=== PATIENT | male | born 1955 ===

== ENCOUNTER 2018-02-07 14:33 | Observation (INO) | payer OTHER ==
[2018-02-07 15:40] LABS: BASO % 0.4 % (0.0-2.0); EOS % 0.1 % (0.0-4.0); HEMOGLOBIN 14.2 g/dL (12.0-18.0); LYMPH # 0.3 K/uL (1.0-4.3); LYMPH % 5.1 % (20.0-40.0); MEAN CELL VOLUME 94.3 fL (80.0-94.0); MEAN CORPUSCULAR HEMOGLOBIN 32.8 pg (27.0-31.0); MEAN CORPUSCULAR HGB CONC 34.8 g/dL (33.0-37.0); MEAN PLATELET VOLUME 7.3 fL (7.2-11.7); MONO # 0.7 K/uL (0.0-0.8); MONO % 10.8 % (0.0-10.0); NEUT # 5.5 K/uL (1.8-7.0); NEUT % 83.6 % (50.0-75.0); PLATELET COUNT 303 K/uL (130-400); RBC 4.33 Mil/uL (4.40-5.90); RED CELL DISTRIBUTION WIDTH 12.6 % (11.5-14.5); WHITE BLOOD COUNT 6.6 K/uL (4.8-10.8)
--- NOTE | 2018-02-07 15:40 | RAD ---
Date of service: 02/07/2018 PROCEDURE: CHEST RADIOGRAPH, 1 VIEW HISTORY: Detox/Psy COMPARISON: None available. FINDINGS: LUNGS: Clear. PLEURA: No pneumothorax or pleural fluid seen. CARDIOVASCULAR: No aortic atherosclerotic calcification present. Normal. OSSEOUS STRUCTURES: No significant abnormalities. VISUALIZED UPPER ABDOMEN: Normal. OTHER FINDINGS: None. IMPRESSION: No active disease.
--- NOTE | 2018-02-07 15:40 | C.PDOC ---
History Of Present Illness 62 y/o male presents to the ED with complaints of palpitations. Additionally patient reports feeling depressed and nervous ever since passed a few months ago. Denies any suicidal or homicidal ideation. Patient was seen 2 months ago for palpitations and discharged home. Patient states he has yet to follow up. Otherwise he denies chest pain, SOB, dizziness, visual loss, abdominal pain, fever, chills, or night sweats. Time Seen by Provider: 02/07/18 15:02 Chief Complaint (Nursing): Psychiatric Evaluation History Per: Patient History/Exam Limitations: no limitations Onset/Duration Of Symptoms: Intermittent Episodes Current Symptoms Are (Timing): Still Present Associated Symptoms: Anxiety. denies: Suicidal Thoughts, Suicidal Plan Past Medical History Reviewed: Historical Data, Nursing Documentation, Vital Signs Vital Signs: Last Vital Signs Temp 98.5 F 02/07/18 14:43 Pulse 89 02/07/18 14:43 Resp 16 02/07/18 14:43 BP 219/117 H 02/07/18 14:43 Pulse Ox 98 02/07/18 14:43 Surgical History: Appendectomy Family History: States: Unknown Family Hx - Social History Hx Tobacco Use: No Hx Alcohol Use: No Hx Substance Use: No - Immunization History Hx Tetanus Toxoid Vaccination: No Hx Influenza Vaccination: No Hx Pneumococcal Vaccination: No Review Of Systems Except As Marked, All Systems Reviewed And Found Negative. Constitutional: Negative for: Fever, Chills, Sweats Eyes: Negative for: Vision Change Cardiovascular: Positive for: Palpitations. Negative for: Chest Pain Respiratory: Negative for: Shortness of Breath Gastrointestinal: Negative for: Nausea, Vomiting Neurological: Negative for: Weakness, Numbness, Dizziness Psych: Positive for: Anxiety, Depression. Negative for: Suicidal ideation (or homicidal ideation) Physical Exam - Physical Exam Appears: Non-toxic, No Acute Distress, Other (Hypertensive, BP 219/117 on arrival) Skin: Normal Color, Warm, No Diaphoretic Head: Atraumatic, Normacephalic Eye(s): bilateral: Normal Inspection, PERRL, EOMI Oral Mucosa: Moist Neck: Normal ROM Chest: Symmetrical Cardiovascular: Rhythm Regular, No Murmur Respiratory: Normal Breath Sounds, No Rales, No Rhonchi, No Wheezing Gastrointestinal/Abdominal: Soft, No Tenderness, No Distention Extremity: Bilateral: Atraumatic, Normal Color And Temperature, Normal ROM Pulses: Left Radial: Normal, Right Radial: Normal Neurological/Psych: Oriented x3, Normal Speech ED Course And Treatment - Laboratory Results Result Diagrams: 02/07/18 15:28 18 15:28 ECG: Interpreted By Me, Viewed By Me ECG Rhythm: Sinus Rhythm Interpretation Of ECG: normal intervals, normal axis, no ST or T wave abnormalities Rate From EC (bpm) O2 Sat by Pulse Oximetry: 98 (RA) Pulse Ox Interpretation: Normal Medical Decision Making Medical Decision Making: Impression: Palpitations, Psych eval Plan: --EKG --Labs --Chest x-ray Patient given Labetalol IV. 16:[address] Bourne, patient accepted for observation for palpitations, hypertension, and depression. Disposition Discussed With : Tony Bourne Doctor Will See Patient In The: Hospital Counseled Patient/Family Regarding: Studies Performed, Diagnosis - Disposition Disposition: HOSPITALIZED Disposition Time: 16:23 Condition: FAIR - Clinical Impression Clinical Impression: Palpitations, Depression, Hypertension - Scribe Statement The provider has reviewed the documentation as recorded by the Prosper Britt Provider Attestation: All medical record entries made by the Laureibcorrie were at my direction and pers onally dictated by me. I have reviewed the chart and agree that the record accurately reflects my personal performance of the history, physical exam, medical decision making, and the department course for this patient. I have also personally directed, reviewed, and agree with the discharge instructions and disposition.
[2018-02-07 15:50] LABS: URINE BILIRUBIN NEGATIVE (NEGATIVE); URINE BLOOD 1+ (NEGATIVE); URINE CLARITY Clear (Clear); URINE COLOR Yellow (YELLOW); URINE GLUCOSE (UA) NORMAL (Normal); URINE LEUKOCYTE ESTERASE NEG Leu/uL (Negative); URINE PROTEIN 2+ mg/dL (NEGATIVE); URINE UROBILINOGEN NORMAL mg/dL (0.2-1.0)
[2018-02-07] MEDS ORDERED: Labetalol 5 mg/ml Inj 20ML IV STA (15:53)
[2018-02-07 15:54] LABS: ALB/GLOB RATIO 1.2 (1.0-2.1); ALBUMIN 4.2 g/dL (3.5-5.0); ALT/SGPT 22 U/L (21-72); AST/SGOT 18 U/L (17-59); BLOOD UREA NITROGEN 15 mg/dL (9-20); CALCIUM 8.9 mg/dl (8.6-10.4); GFR NON-AFRICAN AMERICAN > 60
[2018-02-07 16:08] LABS: BANDS 1 % (0-2); LYMPHOCYTE 2 % (20-40); MONOCYTE 7 % (0-10); NEUTROPHIL 90 % (50-75); TOTAL CELLS COUNTED 100
[2018-02-07 16:09] LABS: PLATELET ESTIMATE NORMAL (NORMAL)
[2018-02-07 16:24] LABS: BARBITURATES, UR NEGATIVE (NEGATIVE); BENZODIAZEPINES, UR NEGATIVE (NEGATIVE); OPIATES, UR NEGATIVE (NEGATIVE); PHENCYCLIDINE, UR NEGATIVE (NEGATIVE)
--- NOTE | 2018-02-07 17:03 | CP.PCM.HP ---
<Sen Greenberg - Last Filed: 02/07/18 21:04> History of Present Illness - History of Present Illness History of Present Illness: PGY2 Medicine Note for Dr. Bourne Patient is a 62 year old male with no past medical history presenting to the hospital with a complaint of palpitations. He was seen for palpitations 2 months ago in the emergency room and was discharged home. He has been depressed since his of 38 years 3 months ago. Patient was given instructions to follow up with cardiology but reports that he never followed up. Patient reports that he had an episode of blurry vision/vision loss 3 days ago, which completely resolved within a number of hours. Denies fevers, chills, nausea, vomiting, diarrhea, constipation, chest pain, shortness of breath, lightheadedness, dizziness, numbness or tingling. Denies suicidal or homicidal ideation. PMD: none PMH: denies PSH: appendectomy Family: Mother - at 94 of unknown cancer, Father - in mid 70s of unknown causes Social: Denies tobacco, alcohol or illicit drug use Allergies: NKDA Home Medications: none Present on Admission - Present on Admission Any Indicators Present on Admission: No Review of Systems - Review of Systems All systems: reviewed and no additional remarkable complaints except - Constitutional Constitutional: As Per HPI - EENT Eyes: As Per HPI Ears: As Per HPI Nose/Mouth/Throat: As Per HPI - Cardiovascular Cardiovascular: As Per HPI - Respiratory Respiratory: As Per HPI - Gastrointestinal Gastrointestinal: As Per HPI - Musculoskeletal Musculoskeletal: As Per HPI - Integumentary Integumentary: As Per HPI - Neurological Neurological: As Per HPI - Psychiatric Psychiatric: As Per HPI - Endocrine Endocrine: As Per HPI - Hematologic/Lymphatic Hematologic: As Per HPI Past Patient History - Infectious Disease Hx of Infectious Diseases: None - Past Social History Smoking Status: Never Smoked - PSYCHIATRIC Hx Substance Use: No - SURGICAL HISTORY Hx Appendectomy: Yes - ANESTHESIA Hx Anesthesia: Yes Hx Anesthesia Reactions: No Hx Malignant Hyperthermia: No Meds Home Medications: Home Medication List Medication Instructions Recorded Confirmed Type Lorazepam [Ativan] 0.5 mg PO DAILY PRN #15 tab 02/08/18 Rx RX: Lisinopril [Zestril] 10 mg PO DAILY #30 tab 02/08/18 Rx Allergies/Adverse Reactions: Allergies Allergy/AdvReac Type Severity Reaction Status Date / Time No Known Allergies Allergy Verified 02/07/18 14:46 Physical Exam - Constitutional Appears: Non-toxic, No Acute Distress - Head Exam Head Exam: ATRAUMATIC, NORMOCEPHALIC - Eye Exam Eye Exam: EOMI, Normal appearance, PERRL - ENT Exam ENT Exam: Mucous Membranes Moist - Neck Exam Neck exam: Positive for: Normal Inspection. Negative for: Lymphadenopathy - Respiratory Exam Respiratory Exam: Clear to Auscultation Bilateral, NORMAL BREATHING PATTERN. absent: Accessory Muscle Use, Rales, Rhonchi, Wheezes, Respiratory Distress - Cardiovascular Exam Cardiovascular Exam: REGULAR RHYTHM, +S1, +S2 - GI/Abdominal Exam GI & Abdominal Exam: Normal Bowel Sounds, Soft. absent: Distended, Firm, Guarding, Rebound, Rigid, Tenderness - Extremities Exam Extremities exam: Positive for: normal inspection, pedal pulses present. Negative for: calf tenderness, pedal edema - Neurological Exam Neurological exam: Alert, Oriented x3 - Psychiatric Exam Psychiatric exam: Normal Affect, Normal Mood - Skin Skin Exam: Dry, Warm Results - Vital Signs Recent Vital Signs: Last Vital Signs Temp 98.2 F 02/07/18 16:08 Pulse 77 02/07/18 16:08 Resp 18 02/07/18 16:08 BP 151/87 H 02/07/18 16:08 Pulse Ox 98 02/07/18 16:52 - Labs Result Diagrams: 02/07/18 15:28 02/07/18 15:28 Labs: Laboratory Results - last 24 hr 02/07/18 02/07/18 02/07/18 15:28 15:28 15:42 WBC 6.6 RBC 4.33 L Hgb 14.2 Hct 40.8 MCV 94.3 H MCH 32.8 H MCHC 34.8 RDW 12.6 Plt Count 303 MPV 7.3 Neut % (Auto) 83.6 H Lymph % (Auto) 5.1 L [place] % (Auto) 10.8 H Eos % (Auto) 0.1 Baso % (Auto) 0.4 Neut # (Auto) 5.5 Lymph # (Auto) 0.3 L [place] # (Auto) 0.7 Eos # (Auto) 0.0 Baso # (Auto) 0.0 Neutrophils % (Manual) 90 H Band Neutrophils % 1 Lymphocytes % (Manual) 2 L Monocytes % (Manual) 7 Platelet Estimate Normal RBC Morphology Normal Sodium 133 Potassium 4.3 Chloride 99 Carbon Dioxide 24 Anion Gap 14 BUN 15 Creatinine 1.0 Est GFR ( Amer) > 60 Est GFR (Non-Af Amer) > 60 Random Glucose 105 Calcium 8.9 Phosphorus 3.3 Magnesium 1.8 Total Bilirubin 0.5 AST 18 ALT 22 Alkaline Phosphatase 88 Troponin I < 0.0120 Total Protein 7.7 Albumin 4.2 Globulin 3.5 Albumin/Globulin Ratio 1.2 Urine Color Yellow Urine Clarity Clear Urine pH 6.0 Ur Specific [place] 1.005 Urine Protein 2+ H Urine Glucose (UA) Normal Urine Ketones Negative Urine Blood 1+ H Urine Nitrate Negative Urine Bilirubin Negative Urine Urobilinogen Normal Ur Leukocyte Esterase Neg Urine WBC (Auto) 1 Urine RBC (Auto) 1 Urine Opiates Screen Urine Methadone Screen Ur Barbiturates Screen Ur Phencyclidine Scrn Ur Amphetamines Screen U Benzodiazepines Scrn U Oth Cocaine Metabols U Cannabinoids Screen Alcohol, Quantitative < 10 02/07/18 15:42 WBC RBC Hgb Hct MCV MCH MCHC RDW Plt Count MPV Neut % (Auto) Lymph % (Auto) [place] % (Auto) Eos % (Auto) Baso % (Auto) Neut # (Auto) Lymph # (Auto) [place] # (Auto) Eos # (Auto) Baso # (Auto) Neutrophils % (Manual) Band Neutrophils % Lymphocytes % (Manual) Monocytes % (Manual) Platelet Estimate RBC Morphology Sodium Potassium Chloride Carbon Dioxide Anion Gap BUN Creatinine Est GFR ( Amer) Est GFR (Non-Af Amer) Random Glucose Calcium Phosphorus Magnesium Total Bilirubin AST ALT Alkaline Phosphatase Troponin I Total Protein Albumin Globulin Albumin/Globulin Ratio Urine Color Urine Clarity Urine pH Ur Specific [place] Urine Protein Urine Glucose (UA) Urine Ketones Urine Blood Urine Nitrate Urine Bilirubin Urine Urobilinogen Ur Leukocyte Esterase Urine WBC (Auto) Urine RBC (Auto) Urine Opiates Screen Negative Urine Methadone Screen Negative Ur Barbiturates Screen Negative Ur Phencyclidine Scrn Negative Ur Amphetamines Screen Negative U Benzodiazepines Scrn Negative U Oth Cocaine Metabols Negative U Cannabinoids Screen Negative Alcohol, Quantitative Assessment & Plan - Assessment and Plan (Free Text) Plan: Hypertensive Urgency 219/117 upon arrival * Given Labetalol 20mg IVP in ED -->151/87 * Started on Lisinopril 10mg PO daily - first dose given today Palpitations - resolved CXR - no active disease EKG - 88bpm, normal axis, no acute ST segment elevations HgbA1c - pending TSH - pending Lipid Panel - pending Trop negative Depression Psych consulted, Dr. Matos * f/u recs Prophylactic Care Lovenox 40mg SC daily Case discussed with Dr. Tayla Chatterjee Yari PGY2 <Tony Bourne - Last Filed: 02/09/18 19:54> Results - Vital Signs Recent Vital Signs: Last Vital Signs Temp 98.1 F 02/08/18 08:40 Pulse 70 02/08/18 08:40 Resp 20 02/08/18 08:40 BP 157/102 H 02/08/18 08:40 Pulse Ox 96 02/08/18 08:40 - Labs Result Diagrams: 02/08/18 07:47 02/08/18 11:07 Labs: Laboratory Results - last 24 hr 02/08/18 02/08/18 02/08/18 07:47 07:47 07:47 WBC 6.1 RBC 4.19 L Hgb 13.7 Hct 39.7 MCV 94.6 H MCH 32.6 H MCHC 34.5 RDW 12.4 Plt Count 291 MPV 7.5 Neut % (Auto) 79.3 H Lymph % (Auto) 6.7 L [place] % (Auto) 12.7 H Eos % (Auto) 0.7 Baso % (Auto) 0.6 Neut # (Auto) 4.8 Lymph # (Auto) 0.4 L [place] # (Auto) 0.8 Eos # (Auto) 0.0 Baso # (Auto) 0.0 Neutrophils % (Manual) 84 H Lymphocytes % (Manual) 4 L Monocytes % (Manual) 10 Eosinophils % (Manual) 1 Basophils % (Manual) 1 Platelet Estimate Normal Sodium Potassium Chloride Carbon Dioxide Anion Gap BUN Creatinine Est GFR ( Amer) Est GFR (Non-Af Amer) Random Glucose Hemoglobin A1c 5.5 Calcium Total Bilirubin AST ALT Alkaline Phosphatase Total Protein Albumin Globulin Albumin/Globulin Ratio Triglycerides 98 Cholesterol 153 LDL Cholesterol Direct 95 HDL Cholesterol 40 TSH 3rd Generation 2.29 02/08/18 11:07 WBC RBC Hgb Hct MCV MCH MCHC RDW Plt Count MPV Neut % (Auto) Lymph % (Auto) [place] % (Auto) Eos % (Auto) Baso % (Auto) Neut # (Auto) Lymph # (Auto) [place] # (Auto) Eos # (Auto) Baso # (Auto) Neutrophils % (Manual) Lymphocytes % (Manual) Monocytes % (Manual) Eosinophils % (Manual) Basophils % (Manual) Platelet Estimate Sodium 134 Potassium 4.4 Chloride 102 Carbon Dioxide 22 Anion Gap 14 BUN 18 Creatinine 1.0 Est GFR ( Amer) > 60 Est GFR (Non-Af Amer) > 60 Random Glucose 108 Hemoglobin A1c Calcium 9.1 Total Bilirubin 0.5 AST 17 ALT 28 Alkaline Phosphatase 80 Total Protein 6.9 Albumin 3.8 Globulin 3.1 Albumin/Globulin Ratio 1.2 Triglycerides Cholesterol LDL Cholesterol Direct HDL Cholesterol TSH 3rd Generation Attending/Attestation - Attestation I have personally seen and examined this patient.: Yes I have fully participated in the care of the patient.: Yes I have reviewed all pertinent clinical information: Yes Notes (Text): Seen and examined Assessment and the plan discussed in detail with the patient
[2018-02-07] MEDS ORDERED: Labetalol 5mg/ml (4ml) ONE (17:19)
[2018-02-08 00:10] VITALS: RESP 20
[2018-02-08 07:54] LABS: BASO % 0.6 % (0.0-2.0); EOS % 0.7 % (0.0-4.0); HEMOGLOBIN 13.7 g/dL (12.0-18.0); LYMPH # 0.4 K/uL (1.0-4.3); LYMPH % 6.7 % (20.0-40.0); MEAN CELL VOLUME 94.6 fL (80.0-94.0); MEAN CORPUSCULAR HEMOGLOBIN 32.6 pg (27.0-31.0); MEAN CORPUSCULAR HGB CONC 34.5 g/dL (33.0-37.0); MEAN PLATELET VOLUME 7.5 fL (7.2-11.7); MONO # 0.8 K/uL (0.0-0.8); MONO % 12.7 % (0.0-10.0); NEUT # 4.8 K/uL (1.8-7.0); NEUT % 79.3 % (50.0-75.0); PLATELET COUNT 291 K/uL (130-400); RBC 4.19 Mil/uL (4.40-5.90); RED CELL DISTRIBUTION WIDTH 12.4 % (11.5-14.5); WHITE BLOOD COUNT 6.1 K/uL (4.8-10.8)
[2018-02-08 08:42] VITALS: BP 157/102; PULSE 70; TEMP 98.1; O2SAT 96
[2018-02-08 08:44] LABS: BASOPHIL 1 % (0-2); EOSINOPHIL 1 % (0-4); LYMPHOCYTE 4 % (20-40); MONOCYTE 10 % (0-10); NEUTROPHIL 84 % (50-75); PLATELET ESTIMATE NORMAL (NORMAL); TOTAL CELLS COUNTED 100
[2018-02-08] MEDS ORDERED: Enoxaparin 40 mg Syringe SC SCH (10:00)
--- NOTE | 2018-02-08 10:16 | CP.PCM.DIS ---
<SadieSarita Y - Last Filed: 02/08/18 16:47> Provider - Provider Date of Admission: 02/07/18 16:22 Attending physician: Tony Bourne MD Consults: 02/07/18 16:25 Psychiatry Consult Routine Comment: Consulting Provider: Cyndie Matos Consulting Physician: Cyndie Matos Reason for Consult: depression Time Spent in preparation of Discharge (in minutes): 45 Diagnosis - Discharge Diagnosis (1) Hypertensive urgency Status: Acute (2) Palpitations Status: Acute Hospital Course - Lab Results Lab Results: Most Recent Lab Values WBC 6.1 K/uL (4.8-10.8) 02/08/18 07:47 RBC 4.19 Mil/uL (4.40-5.90) L 02/08/18 07:47 Hgb 13.7 g/dL (12.0-18.0) 02/08/18 07:47 Hct 39.7 % (35.0-51.0) 02/08/18 07:47 MCV 94.6 fL (80.0-94.0) H 02/08/18 07:47 MCH 32.6 pg (27.0-31.0) H 02/08/18 07:47 MCHC 34.5 g/dL (33.0-37.0) 02/08/18 07:47 RDW 12.4 % (11.5-14.5) 02/08/18 07:47 Plt Count 291 K/uL (130-400) 02/08/18 07:47 MPV 7.5 fL (7.2-11.7) 02/08/18 07:47 Neut % (Auto) 79.3 % (50.0-75.0) H 02/08/18 07:47 Lymph % (Auto) 6.7 % (20.0-40.0) L 02/08/18 07:47 Colbert % (Auto) 12.7 % (0.0-10.0) H 02/08/18 07:47 Eos % (Auto) 0.7 % (0.0-4.0) 02/08/18 07:47 Baso % (Auto) 0.6 % (0.0-2.0) 02/08/18 07:47 Neut # (Auto) 4.8 K/uL (1.8-7.0) 02/08/18 07:47 Lymph # (Auto) 0.4 K/uL (1.0-4.3) L 02/08/18 07:47 Colbert # (Auto) 0.8 K/uL (0.0-0.8) 02/08/18 07:47 Eos # (Auto) 0.0 K/uL (0.0-0.7) 02/08/18 07:47 Baso # (Auto) 0.0 K/uL (0.0-0.2) 02/08/18 07:47 Neutrophils % (Manual) 84 % (50-75) H 02/08/18 07:47 Band Neutrophils % 1 % (0-2) 02/07/18 15:28 Lymphocytes % (Manual) 4 % (20-40) L 02/08/18 07:47 Monocytes % (Manual) 10 % (0-10) 02/08/18 07:47 Eosinophils % (Manual) 1 % (0-4) 02/08/18 07:47 Basophils % (Manual) 1 % (0-2) 02/08/18 07:47 Platelet Estimate Normal (NORMAL) 02/08/18 07:47 RBC Morphology Normal 02/07/18 15:28 Sodium 133 mmol/L (132-148) 02/07/18 15:28 Potassium 4.3 mmol/L (3.6-5.2) 02/07/18 15:28 Chloride 99 mmol/L (98-107) 02/07/18 15:28 Carbon Dioxide 24 mmol/L (22-30) 02/07/18 15:28 Anion Gap 14 (10-20) 02/07/18 15:28 BUN 15 mg/dL (9-20) 02/07/18 15:28 Creatinine 1.0 mg/dL (0.8-1.5) 02/07/18 15:28 Est GFR ( Amer) > 60 02/07/18 15:28 Est GFR (Non-Af Amer) > 60 02/07/18 15:28 Random Glucose 105 mg/dL (75-110) 02/07/18 15:28 Hemoglobin A1c 5.5 % (4.2-6.5) 02/08/18 07:47 Calcium 8.9 mg/dl (8.6-10.4) 02/07/18 15:28 Phosphorus 3.3 mg/dL (2.5-4.5) 02/07/18 15:28 Magnesium 1.8 mg/dL (1.6-2.3) 02/07/18 15:28 Total Bilirubin 0.5 mg/dL (0.2-1.3) 02/07/18 15:28 AST 18 U/L (17-59) 02/07/18 15:28 ALT 22 U/L (21-72) 02/07/18 15:28 Alkaline Phosphatase 88 U/L (38-126) 02/07/18 15:28 Troponin I < 0.0120 ng/mL (0.00-0.120) 02/07/18 15:28 Total Protein 7.7 g/dL (6.3-8.3) 02/07/18 15:28 Albumin 4.2 g/dL (3.5-5.0) 02/07/18 15: Globulin 3.5 gm/dL (2.2-3.9) 02/07/18 15:28 Albumin/Globulin Ratio 1.2 (1.0-2.1) 02/07/18 15:28 Triglycerides 98 mg/dL (0-149) 02/08/18 07:47 Cholesterol 153 mg/dL (0-199) 02/08/18 07:47 LDL Cholesterol Direct 95 mg/dL (0-129) 02/08/18 07:47 HDL Cholesterol 40 mg/dL (30-70) 02/08/18 07:47 TSH 3rd Generation 2.29 mIU/L (0.46-4.68) 02/08/18 07:47 Urine Color Yellow (YELLOW) 02/07/18 15:42 Urine Clarity Clear (Clear) 02/07/18 15:42 Urine pH 6.0 (5.0-8.0) 02/07/18 15:42 Ur Specific [place] 1.005 (1.003-1.030) 02/07/18 15:42 Urine Protein 2+ mg/dL (NEGATIVE) H 02/07/18 15:42 Urine Glucose (UA) Normal mg/dL (Normal) 02/07/18 15:42 Urine Ketones Negative mg/dL (NEGATIVE) 02/07/18 15:42 Urine Blood 1+ (NEGATIVE) H 02/07/18 15:42 Urine Nitrate Negative (NEGATIVE) 02/07/18 15:42 Urine Bilirubin Negative (NEGATIVE) 02/07/18 15:42 Urine Urobilinogen Normal mg/dL (0.2-1.0) 02/07/18 15:42 Ur Leukocyte Esterase Neg Tarsha/uL (Negative) 02/07/18 15:42 Urine WBC (Auto) 1 /hpf (0-5) 02/07/18 15:42 Urine RBC (Auto) 1 /hpf (0-3) 02/07/18 15:42 Urine Opiates Screen Negative (NEGATIVE) 02/07/18 15:42 Urine Methadone Screen Negative (NEGATIVE) 02/07/18 15:42 Ur Barbiturates Screen Negative (NEGATIVE) 02/07/18 15:42 Ur Phencyclidine Scrn Negative (NEGATIVE) 02/07/18 15:42 Ur Amphetamines Screen Negative (NEGATIVE) 02/07/18 15:42 U Benzodiazepines Scrn Negative (NEGATIVE) 02/07/18 15:42 U Oth Cocaine Metabols Negative (NEGATIVE) 02/07/18 15:42 U Cannabinoids Screen Negative (NEGATIVE) 02/07/18 15:42 Alcohol, Quantitative < 10 mg/dl (0-10) 02/07/18 15:28 - Hospital Course Hospital Course: Patient is a 62 year old male with no past medical history presenting to the hospital with a complaint of palpitations. He was seen for palpitations 2 months ago in the emergency room and was discharged home. He has been depressed since his of 38 years 3 months ago. Patient was given instructions to follow up with cardiology but reports that he never followed up. Patient reports that he had an episode of blurry vision/vision loss 3 days ago, which completely resolved within a number of hours. Denies fevers, chills, nausea, vomiting, diarrhea, constipation, chest pain, shortness of breath, lightheadedness, dizziness, numbness or tingling. Denies suicidal or homicidal ideation. Patient was given Labetalol in the ED and started on Lisinopril today. CXR showed no active disease and palpitations resolved as BP came down. EKG showed NSR@88 on a normal axis with no acute ST segment changes. BW showed no organic causes and JULIO C was negative. Overnight telemetry monitoring was unremarkable and patient clinically improved. Primary Diagnosis: Hypertensive urgency with palpitations Patient is clear for discharge per Drs. Bourne and Carlo. He is to start Lisinopril 10mg 1 tab by mouth daily to control his high blood pressure and Ativan 0.5mg 1 tab by mouth daily as needed for severe anxiety. He is to follow up with the Clinic downstairs as he has no PMD for both these issues. If symptoms should return or worsen, please do not hesitate to return to the ED. Plan was discussed with patient who understands and agrees. This is a summary of hospital events. For more details, please refer to the EMR. - Date & Time of H&P Date of H&P: 02/08/18 Time of H&P: 10:00 Discharge Exam - Head Exam Head Exam: ATRAUMATIC, NORMOCEPHALIC - Eye Exam Eye Exam: EOMI, Normal appearance, PERRL - ENT Exam ENT Exam: Mucous Membranes Moist - Respiratory Exam Respiratory Exam: Clear to PA & Lateral, NORMAL BREATHING PATTERN, UNREMARKABLE. absent: Rales, Rhonchi, Wheezes - Cardiovascular Exam Cardiovascular Exam: REGULAR RHYTHM, +S1, +S2. absent: Gallop, Rubs, Systolic Murmur Additional comments: no overnight events on tele monitoring - GI/Abdominal Exam GI & Abdominal Exam: Normal Bowel Sounds, Soft. absent: Guarding, Rigid, Tenderness - Extremities Exam Extremities exam: pedal pulses present Additional comments: peripheral pulses palpable bilaterally (radial, DP) IV access in R AC to be removed prior to discharge - Back Exam Back exam: absent: CVA tenderness (L), CVA tenderness (R) - Neurological Exam Neurological exam: Alert, CN II-XII Intact, Oriented x3 - Psychiatric Exam Psychiatric exam: Normal Affect, Normal Mood - Skin Skin Exam: Normal Color, Warm Discharge Plan - Discharge Medications Prescriptions: RX: Lisinopril [Zestril] 10 mg PO DAILY #30 tab Lorazepam [Ativan] 0.5 mg PO DAILY PRN #15 tab PRN Reason: Anxiety - Follow Up Plan Condition: FAIR Disposition: HOME/ ROUTINE Instructions: High Blood Pressure in Adults, Heart Healthy Diet, Lisinopril, Lorazepam, Palpitations (DC), Hypertension (DC) Additional Instructions: Patient is clear for discharge per Drs. Pink. He is to start Lisinopril 10mg 1 tab by mouth daily to control his high blood pressure and Ativan 0.5mg 1 tab by mouth daily as needed for severe anxiety. He is to follow up with the Clinic downstairs as he has no PMD for both these issues. If symptoms should return or worsen, please do not hesitate to return to the ED. Plan was discussed with patient who understands and agrees. Referrals: [facility] [Outside] <Tony Bourne - Last Filed: 02/08/18 17:05> Provider - Provider Date of Admission: 02/07/18 16:22 Attending physician: Tony Bourne MD Consults: 02/07/18 16:25 Psychiatry Consult Routine Comment: Consulting Provider: Cyndie Matos Consulting Physician: Cyndie Matos Reason for Consult: depression Hospital Course - Lab Results Lab Results: Most Recent Lab Values WBC 6.1 K/uL (4.8-10.8) 02/08/18 07:47 RBC 4.19 Mil/uL (4.40-5.90) L 02/08/18 07:47 Hgb 13.7 g/dL (12.0-18.0) 02/08/18 07:47 Hct 39.7 % (35.0-51.0) 02/08/18 07:47 MCV 94.6 fL (80.0-94.0) H 02/08/18 07:47 MCH 32.6 pg (27.0-31.0) H 02/08/18 07:47 MCHC 34.5 g/dL (33.0-37.0) 02/08/18 07:47 RDW 12.4 % (11.5-14.5) 02/08/18 07:47 Plt Count 291 K/uL (130-400) 02/08/18 07:47 MPV 7.5 fL (7.2-11.7) 02/08/18 07:47 Neut % (Auto) 79.3 % (50.0-75.0) H 02/08/18 07:47 Lymph % (Auto) 6.7 % (20.0-40.0) L 02/08/18 07:47 Colbert % (Auto) 12.7 % (0.0-10.0) H 02/08/18 07:47 Eos % (Auto) 0.7 % (0.0-4.0) 02/08/18 07:47 Baso % (Auto) 0.6 % (0.0-2.0) 02/08/18 07:47 Neut # (Auto) 4.8 K/uL (1.8-7.0) 02/08/18 07:47 Lymph # (Auto) 0.4 K/uL (1.0-4.3) L 02/08/18 07:47 Colbert # (Auto) 0.8 K/uL (0.0-0.8) 02/08/18 07:47 Eos # (Auto) 0.0 K/uL (0.0-0.7) 02/08/18 07:47 Baso # (Auto) 0.0 K/uL (0.0-0.2) 02/08/18 07:47 Neutrophils % (Manual) 84 % (50-75) H 02/08/18 07:47 Band Neutrophils % 1 % (0-2) 02/07/18 15:28 Lymphocytes % (Manual) 4 % (20-40) L 02/08/18 07:47 Monocytes % (Manual) 10 % (0-10) 02/08/18 07:47 Eosinophils % (Manual) 1 % (0-4) 02/08/18 07:47 Basophils % (Manual) 1 % (0-2) 02/08/18 07:47 Platelet Estimate Normal (NORMAL) 02/08/18 07:47 RBC Morphology Normal 02/07/18 15:28 Sodium 134 mmol/L (132-148) 02/08/18 11:07 Potassium 4.4 mmol/L (3.6-5.2) 02/08/18 11:07 Chloride 102 mmol/L (98-107) 02/08/18 11:07 Carbon Dioxide 22 mmol/L (22-30) 02/08/18 11:07 Anion Gap 14 (10-20) 02/08/18 11:07 BUN 18 mg/dL (9-20) 02/08/18 11:07 Creatinine 1.0 mg/dL (0.8-1.5) 02/08/18 11:07 Est GFR ( Amer) > 60 02/08/18 11:07 Est GFR (Non-Af Amer) > 60 02/08/18 11:07 Random Glucose 108 mg/dL (75-110) 02/08/18 11:07 Hemoglobin A1c 5.5 % (4.2-6.5) 02/08/18 07:47 Calcium 9.1 mg/dl (8.6-10.4) 02/08/18 11:07 Phosphorus 3.3 mg/dL (2.5-4.5) 02/07/18 15:28 Magnesium 1.8 mg/dL (1.6-2.3) 02/07/18 15:28 Total Bilirubin 0.5 mg/dL (0.2-1.3) 02/08/18 11:07 AST 17 U/L (17-59) 02/08/18 11:07 ALT 28 U/L (21-72) 02/08/18 11:07 Alkaline Phosphatase 80 U/L (38-126) 02/08/18 11:07 Troponin I < 0.0120 ng/mL (0.00-0.120) 02/07/18 15:28 Total Protein 6.9 g/dL (6.3-8.3) 02/08/18 11:07 Albumin 3.8 g/dL (3.5-5.0) 02/08/18 11:07 Globulin 3.1 gm/dL (2.2-3.9) 02/08/18 11:07 Albumin/Globulin Ratio 1.2 (1.0-2.1) 02/08/18 11:07 Triglycerides 98 mg/dL (0-149) 02/08/18 07:47 Cholesterol 153 mg/dL (0-199) 02/08/18 07:47 LDL Cholesterol Direct 95 mg/dL (0-129) 02/08/18 07:47 HDL Cholesterol 40 mg/dL (30-70) 02/08/18 07:47 TSH 3rd Generation 2.29 mIU/L (0.46-4.68) 02/08/18 07:47 Urine Color Yellow (YELLOW) 02/07/18 15:42 Urine Clarity Clear (Clear) 02/07/18 15:42 Urine pH 6.0 (5.0-8.0) 02/07/18 15:42 Ur Specific [place] 1.005 (1.003-1.030) 02/07/18 15:42 Urine Protein 2+ mg/dL (NEGATIVE) H 02/07/18 15:42 Urine Glucose (UA) Normal mg/dL (Normal) 02/07/18 15:42 Urine Ketones Negative mg/dL (NEGATIVE) 02/07/18 15:42 Urine Blood 1+ (NEGATIVE) H 02/07/18 15:42 Urine Nitrate Negative (NEGATIVE) 02/07/18 15:42 Urine Bilirubin Negative (NEGATIVE) 02/07/18 15:42 Urine Urobilinogen Normal mg/dL (0.2-1.0) 02/07/18 15:42 Ur Leukocyte Esterase Neg Tarsha/uL (Negative) 02/07/18 15:42 Urine WBC (Auto) 1 /hpf (0-5) 02/07/18 15:42 Urine RBC (Auto) 1 /hpf (0-3) 02/07/18 15:42 Urine Opiates Screen Negative (NEGATIVE) 02/07/18 15:42 Urine Methadone Screen Negative (NEGATIVE) 02/07/18 15:42 Ur Barbiturates Screen Negative (NEGATIVE) 02/07/18 15:42 Ur Phencyclidine Scrn Negative (NEGATIVE) 02/07/18 15:42 Ur Amphetamines Screen Negative (NEGATIVE) 02/07/18 15:42 U Benzodiazepines Scrn Negative (NEGATIVE) 02/07/18 15:42 U Oth Cocaine Metabols Negative (NEGATIVE) 02/07/18 15:42 U Cannabinoids Screen Negative (NEGATIVE) 02/07/18 15:42 Alcohol, Quantitative < 10 mg/dl (0-10) 02/07/18 15:28 Attending/Attestation - Attestation I have personally seen and examined this patient.: Yes I have fully participated in the care of the patient.: Yes I have reviewed all pertinent clinical information, including history, physical exam and plan: Yes Notes (Text): seen and examined by me. Patient was admitted with hypertensive urgency we will discharge on lisinopril and follow out pt closey to add or adjust the dose of meds seen by psychiatrist for his possible depression(lost his ) 02/08/18 17:05
--- NOTE | 2018-02-08 11:36 | PCM.PSYCH ---
Initial Psychiatric Evaluation - Initial Psychiatric Evaluation Type of Admission: Voluntary Legal Status: Capacity Chief Complaint (in patient's own words): "Anxious" History of Present Illness and Precipitating Events: The patient is seen, chart reviewed and case discussed. Consultation was requested because of his mood symptoms. Seen with a [facility] speaking medical staff This is a 62-year-old we talked male, has 6 children through , retired, lives alone. The patient states that he lost his 3 months ago and since than he's been feeling depressed. However, he says his depression is getting better and he den ies any suicidal ideation. He sleeps and eats okay. He has significant anxiety and sometimes it gets overwhelming. He came here with palpitations which may be due to anxiety too. No drugs or alcohol No sowmya or psychosis No past psych history No family psych history No medical history Current Medications: Active Medications Generic Name Dose Route Start Last Admin Trade Name Freq PRN Reason Stop Dose Admin Enoxaparin Sodium 40 mg 02/08/18 10:00 02/08/18 09:29 Lovenox SC 40 mg DAILY GUILHERME Administration Lisinopril 10 mg 02/07/18 19:00 02/08/18 09:29 Zestril PO 10 mg DAILY GUILHERME Administration Past Psychiatric History - Past Psychiatric History Previous Treatment History: None Pertinent Medical Hx (Current Medical&Sleep Prob, Allergies): Allergies Allergy/AdvReac Type Severity Reaction Status Date / Time No Known Allergies Allergy Verified 02/07/18 14:46 Lisinopril [Zestril] 10 mg PO DAILY #30 tab 02/08/18 Lorazepam [Ativan] 0.5 mg PO DAILY PRN #15 tab 02/08/18 Review of Systems - Psychiatric Psychiatric: Anxiety, Difficulty Concentrating. absent: Hallucinations, Homicidal Ideation, Paranoia, Suicidal Ideation Mental Status Examination - Personal Presentation Personal Presentation: Looks older than stated age - Affect Affect: Constricted - Motor Activity Motor Activity: Calm - Reliability in Providing Information Reliability in Providing Information: Good - Speech Speech: Organized - Mood Mood: Depressed (Mild), Anxious - Formal Thought Process Formal Thought Process: No Impairment - Cognitive Functions Orientation: Person, Place, Situation, Time Sensorium: Alert Attention/Concentration: Attentive Estimate of Intelligence: Average Judgement: Intact, as evidence by: Insight regarding need for hospitalization Memory: Recent intact, as evidence by: Ability to recall events of the day, Remote intact, as evidenced by: Abilit to recall sig. life events - Risk Risk: Diminished functioning - Strength & Assets Inventory Strength & Assets Inventory: Family support, Cooperative DSM 5 DX - DSM 5 DSM 5 Diagnosis: Adjustment disorder with mixed anxiety and depression - Recommended/Plan of Treatment Treatment Recommendations and Plan of Treatment: Support and psychoeducation provided prn Ativan 1 mg #10- No need for antidepressants as it is grief-related Cleared for d/c
[2018-02-08 12:17] LABS: ALB/GLOB RATIO 1.2 (1.0-2.1); ALBUMIN 3.8 g/dL (3.5-5.0); ALT/SGPT 28 U/L (21-72); AST/SGOT 17 U/L (17-59); BLOOD UREA NITROGEN 18 mg/dL (9-20); CALCIUM 9.1 mg/dl (8.6-10.4); GFR NON-AFRICAN AMERICAN > 60
--- NOTE | 2018-02-08 20:07 | CARD ---
APPROVED REPORT Date of service: 02/07/2018 EKG Measurement Heart [id number] <Conclusion> Normal sinus rhythm Possible Left atrial enlargement Borderline ECG
== END 2018-02-08 14:09 | disposition home or self-care (01) ==
LOC: C.ER 14:33 → C.9E 16:22 → C.6T 16:54
PROVIDERS: ADMIT Internal Medicine; ATTEND Internal Medicine
DX: I16.0 Hypertensive urgency (principal); I10 Essential (primary) hypertension; F32.9 Major depressive disorder, single episode, unspecified; F43.23 Adjustment disorder with mixed anxiety and depressed mood; Z90.49 Acquired absence of other specified parts of digestive tract
CPT/HCPCS: 36415; 71045; 80053; 80061; 80320; 80324; 80345; 80346; 80349; 80353; 80358; 80361; 81001; 83036; 83735; 83992; 84100; 84443; 84484; 85025; 93005; 99284; G0378; J1650